=== PATIENT | female | born 1960 | race Two or more races ===

== ENCOUNTER 2021-08-21 05:30 | Day surgery (SDC) | payer OTHER ==
[~2021-08-21 05:30] MED LIST: FOSAMAX PO
[2021-08-21] MEDS ORDERED: PERCOCET 5-3251 EACH PO (10:46)
== END 2021-08-21 12:35 | disposition home or self-care (01) ==
LOC: CIR.AMB 05:30
PROVIDERS: ATTEND Surgery
DX: D35.1 Benign neoplasm of parathyroid gland (principal); Z20.822 Contact with and (suspected) exposure to COVID-19